=== PATIENT | male | born 1965 | race Two or more races ===

== ENCOUNTER → 2017-01-10 | Outpatient (CLI) | payer OTHER ==
--- NOTE | ~2017-01-10 | CR142 ---
[facility] A Service of [facility] RADIOLOGY TEXT RESULTS PATIENT: CONRAD SCHWARZ LOCATION: [facility] : [birth year] UNIT #: [id number] AGE: [address]: ROHAN COOK SEX: M ORDER DR: [id number] [facility] [address] [place], [place] [address] [id number] O MR#: [id number] Acc #: [id number] NAME: CONRAD SCHWARZ : 1965 SEX: M STUDY DATE/TIME: 01/10/2017 14:39 UNIT: [facility] ROOM: STUDY DESCRIPTION: CR Hand Min 3 Views Rt Attending Physician: Katalina Wilson Referring Physician: Katalina Wilson Ordering Physician: Katalina Wilson Primary Care Physician: Lucía Berman M.D. MEDICAL IMAGING REPORT This report is preliminary unless electronic signature is present EXAM Right hand 3 views, 01/10/2017 HISTORY Right hand pain, sharp pain in right hand for 3 years. No known injury. FINDINGS 3 views of the right hand demonstrate no fracture. There is degenerative change with narrowing of the interphalangeal joints. No lytic or erosive process is seen. The bones are normally mineralized. There is no soft tissue abnormality. IMPRESSION Mild degenerative change with some narrowing of the interphalangeal joints noted. No lytic or erosive process is seen. Dictated by... Quoc Barriga M.D. THIS IS AN ELECTRONICALLY VERIFIED REPORT Quoc Barriga M.D. at 01/13/2017 7:45 AM SILAS/jack TD: 01/11/2017 15:06 JOB #: [id number] MEDICAL IMAGING REPORT Page 1 of 1 COPY
--- NOTE | ~2017-01-10 | CR141 ---
[facility] A Service of [facility] RADIOLOGY TEXT RESULTS PATIENT: CONRAD SCHWARZ LOCATION: [facility] : 69 UNIT #: [id number] AGE: [address]: ROHAN COOK SEX: M ORDER DR: [id number] [facility] [address] [place], [place] [address] [id number] O MR#: [id number] Acc #: [id number] NAME: CONRAD SCHWARZ. : 1965 SEX: M STUDY DATE/TIME: 01/10/2017 14:38 UNIT: [facility] ROOM: STUDY DESCRIPTION: CR Hand Min 3 Views Lt Attending Physician: Katalina Wilson Referring Physician: Katalina Wilson Ordering Physician: Katalina Wilson Primary Care Physician: Lucía Berman M.D. MEDICAL IMAGING REPORT This report is preliminary unless electronic signature is present EXAM Left hand 3 views 01/10/2017 HISTORY Sharp left hand pain for 3 years with no known injury. FINDINGS 3 views of the left hand demonstrate no fracture. There is degenerative change with narrowing of the interphalangeal joints. The bones are normally mineralized. No lytic or erosive process is seen. There is no soft tissue abnormality. IMPRESSION Degenerative change with a mild narrowing of the interphalangeal joints. No lytic or erosive process is seen. Dictated by... Quoc Barriga M.D. THIS IS AN ELECTRONICALLY VERIFIED REPORT Quoc Barriga M.D. at 01/13/2017 7:45 AM SILAS/corey TD: 01/11/2017 14:38 JOB #: [id number] MEDICAL IMAGING REPORT Page 1 of 1 COPY
== END | disposition home or self-care (01) ==
LOC: CRAD 14:25
DX: M79.642 Pain in left hand (principal); M79.641 Pain in right hand; M19.042 Primary osteoarthritis, left hand; M19.041 Primary osteoarthritis, right hand
CPT/HCPCS: 73130